=== PATIENT | female | born 1985 | race Caucasian/White ===

== ENCOUNTER → 2021-01-30 | Outpatient (CLI) | payer OTHER ==
[~2021-01-30] MED LIST: BUPIVACAINE/PF 0.5% ONE; GADOBUTROL 10 MMOL/10 ML VIAL ONE; LIDOCAINE 1%, 10ML ONE; NORCO PO; OMNIPAQUE 300 MG/ML, 10ML VIAL ONE; ROPivacaine/PF 0.2%, 10 ML ONE; SODIUM BICARBONATE 4.2%, 5ML ONE
== END | disposition home or self-care (01) ==
LOC: RAD 08:44
PROVIDERS: ATTEND Nurse Practitioner
DX: M25.552 Pain in left hip (principal); S73.192A Other sprain of left hip, initial encounter; Z88.8 Allergy status to other drugs, medicaments and biological substances; W17.89XA Other fall from one level to another, initial encounter; Y93.23 Activity, snow (alpine) (downhill) skiing, snowboarding, sledding, tobogganing and snow tubing; Y92.89 Other specified places as the place of occurrence of the external cause; Y99.8 Other external cause status
CPT/HCPCS: 27093; 73525; 73722; A9585; J3490; Q9967; J2795